=== PATIENT | male | born 1960 | race Caucasian/White ===

== ENCOUNTER 2017-05-21 18:54 | Emergency (ER) | payer OTHER ==
[~2017-05-21] VITALS: Ht 167.6 cm; Wt 114.0 kg
[~2017-05-21 18:54] MED LIST: CLIN-73 PO; HYDR-3498 PO; IBUP400T22 PO; METF500T4 PO
[2017-05-21 19:15] VITALS: Ht 167.6 cm; Wt 114.0 kg
--- NOTE | 2017-05-21 22:00 | ERD ---
ER Documentation Chief Complaint Chief Complaint L pinky toe pain HPI 56-year-old male presents here in emergency department for complaints of left fifth toe pain after hitting it in the couch 8 days ago. Patient describes the pain as throbbing pain, 6/10 scale, as was upon touching the area. Noticed swelling on the left foot. Patient denies any fever or chills. Patient did not take any medication for pain. ROS All systems reviewed and are negative except as per history of present illness. Medications Home Meds Active Scripts Hydrocodone Bit-Acetaminophen* (Reynolds*) 5-325 Mg Tab, 1 TAB PO Q6 Y for SEVERE PAIN LEVEL 7-10, #20 TAB Prov:ZENOBIA CALVERT NP 02/13/16 Ibuprofen* (Motrin*) 400 Mg Tab, 400 MG PO Q6H Y for PAIN AND OR ELEVATED TEMP, #30 TAB Prov:ZENOBIA CALVERT NP 02/13/16 Clindamycin Hcl* (Clindamycin Hcl*) 300 Mg Capsule, 300 MG PO TID for 10 Days, CAP Prov:ZENOBIA CALVERT CAN SLIDER 02/13/16 Reported Medications Metformin* (Glucophage*) Unknown Strength Tab, PO DAILY, #20 TAB 02/13/16 Allergies Allergies: Coded Allergies: Amoxicillin (Verified Allergy, SWELLING AND RASH, 07/11/13) PMhx/Soc History of Surgery: No Anesthesia Reaction: No Hx Neurological Disorder: No Hx Respiratory Disorders: No Hx Cardiac Disorders: No Hx Psychiatric Problems: No Hx Miscellaneous Medical Probl: Yes (DM) Hx Alcohol Use: Yes (WHISKEY DAILY) Hx Substance Use: No Hx Tobacco Use: Yes Smoking Status: Current every day smoker FmHx Family History: No coronary disease, No diabetes, No other Physical Exam Vitals Vital Signs Date Time Temp Pulse Resp B/P Pulse Ox O2 Delivery O2 Flow Rate FiO2 05/21/17 19:15 98.3 95 16 173/99 96 Physical Exam GENERAL: The patient is well developed and appropriate for usual state of health, in no apparent distress. CHEST: Clear to auscultation bilaterally. There are no rales, wheezes or rhonchi. HEART: Regular rate and rhythm. No murmurs, clicks, rubs or gallops. No S3 or S4. ABDOMEN: Soft, nontender and nondistended. Good bowel sounds. No rebound or guarding. No gross peritonitis. No gross organomegaly or masses. No Mitchell sign or McBurney point tenderness. BACK: No midline or flank tenderness. EXTREMITIES: Tenderness on palpation on the left fifth toe with mild swelling noted, no deformity noted, no ecchymosis noted. Able to do full range of motion without any restriction. Equal pulses bilaterally. Full range of motion of other joints of the body. Grossly neurovascularly intact. NEURO: Alert and oriented. Cranial nerves 2-12 intact. Motor strength in all 4 extremities with 5/5 strength. Sensation grossly intact. Normal speech and gait. SKIN: There is no apparent rash or petechia. The skin is warm and dry. HEMATOLOGIC AND LYMPHATIC: There is no evidence of excessive bruising or lymphedema. No gross cervical, axillary, or inguinal lymphadenopathy. Results 24 hrs PROCEDURE: XR Toe. CLINICAL INDICATION: 56 years of age, male. Pain. Trauma TECHNIQUE: Three views of the left fifth toe. COMPARISON: None available. FINDINGS: There is a mildly displaced acute transverse fracture through the mid shaft of the proximal phalanx of the fifth toe. There is overlying soft tissue swelling. Normal alignment of the joints of the fifth toe. No radiopaque foreign body is identified. Additional comment: None. IMPRESSION: Acute fracture of the proximal phalanx of the left fifth toe as described.. RPTAT: HCTS Physician Rufina Date Time Electronically viewed and signed by Physician Rufina on 05/21/2017 23: 39 CS/ CC: ZENOBIA CALVERT NP After receiving patients xray report, a waqar tape splint, ortho shoe was applied on the patients left fifth toe . After application of the splint, patient has intact sensation and circulation on distal area of the affected joint. Patient does not complain of numbness or tingling after application of the splint. Patient tolerated procedure well. Crutches was given to use afterwards. Procedures/MDM Medical Decision Making: Patient's pain is most likely consistent with a toe fracture. There is no suspicion for neurovascular compromise. Patient has intact sensation and circulation of the affected extremity. There is low suspicion for septic arthritis. Patient does not have any fever. Radiology exams of the affected area does not show any dislocation. Disposition: Home. Patient is given prescription for ibuprofen for pain, Reynolds for severe pain. Patient was advised to elevate the affected area and apply ice on affected area. Patient was advised that if symptoms are worse, numbness, tingling, high fever, unable to move joint, worsening symptoms, to return to emergency department immediately. Otherwise, patient is advised to follow up with the primary care doctor in 5-7 days for reevaluation of symptoms. Disclaimer: Inadvertent spelling and grammatical errors are likely due to EHR/ dictation software use and do not reflect on the overall quality of patient care. Also, please note that the electronic time recorded on this note does not necessarily reflect the actual time of the patient encounter. Departure Diagnosis: Primary Impression: Toe fracture, left Encounter type: initial encounter Toe: unspecified toe Fracture type: closed Fracture alignment: nondisplaced Qualified Code: S92.912A - Closed nondisplaced fracture of phalanx of toe of left foot, unspecified toe, initial encounter Condition: Stable Patient Instructions: Fracture, Toe [Closed] Additional Instructions: Patient is given prescription for ibuprofen for pain, Reynolds for severe pain. Patient was advised to elevate the affected area and apply ice on affected area. Patient was advised that if symptoms are worse, numbness, tingling, high fever, unable to move joint, worsening symptoms, to return to emergency department immediately. Otherwise, patient is advised to follow up with the primary care doctor in 5-7 days for reevaluation of symptoms. ZENOBIA CALVERT NP May 21, 2017 22:00
--- NOTE | 2017-05-21 23:40 | RADRPT ---
PROCEDURE: XR Toe. CLINICAL INDICATION: 56 years of age, male. Pain. Trauma TECHNIQUE: Three views of the left fifth toe. COMPARISON: None available. FINDINGS: There is a mildly displaced acute transverse fracture through the mid shaft of the proximal phalanx of the fifth toe. There is overlying soft tissue swelling. Normal alignment of the joints of the fif th toe. No radiopaque foreign body is identified. Additional comment: None. IMPRESSION: Acute fracture of the proximal phalanx of the left fifth toe as described.. RPTAT: HCTS Physician Rufina Date Time Electronically viewed and signed by Physician Rufina on 05/21/2017 23:39 CS/
[2017-05-21] MEDS ORDERED: IBUP-1542 PO (23:51)
[2017-05-21] MEDS ORDERED: HYDR-906 PO (23:51)
== END 2017-05-22 00:28 | disposition home or self-care (01) ==
LOC: FTE 18:54
DX: S92.512A Displaced fracture of proximal phalanx of left lesser toe(s), initial encounter for closed fracture (principal); E11.9 Type 2 diabetes mellitus without complications; F17.210 Nicotine dependence, cigarettes, uncomplicated; W22.03XA Walked into furniture, initial encounter; Y92.9 Unspecified place or not applicable; Z79.84 Long term (current) use of oral hypoglycemic drugs
CPT/HCPCS: 73630; Z7502